=== PATIENT | male | born 2000 ===

== ENCOUNTER 2020-02-16 15:54 | Emergency (ER) | payer BC ==
--- NOTE | 2020-02-16 16:07 | EDM.PDOC ---
ED HPI GENERAL MEDICAL PROBLEM - General Stated Complaint: SWOLLEN KNEE Time Seen by Provider: 02/16/20 16:02 Source of Information: Reports: Patient History Limitations: Reports: No Limitations - History of Present Illness INITIAL COMMENTS - FREE TEXT/NARRATIVE: HISTORY AND PHYSICAL: History of present illness: Patient is a 19-year-old male who presents to the ED today with concern of right knee pain, swelling, redness since yesterday. Patient states he has noticed that his knee feels "tight "and hard to bend and rates his pain an 8 out of 10. Patient denies any direct trauma or injury to his knee but states he is on his knees working a lot. Patient states he does feel a little bit "warm "but has not checked his temperature at home. Patient denies any health history. Patient denies fever, chills, chest pain, shortness of breath, or cough. Denies headache, neck stiff ness, change in vision, syncope, or near syncope. Denies nausea, vomiting, abdominal pain, diarrhea, constipation, or dysuria. Has not noted any blood in urine or stool. Patient has been eating and drinking appropriately. Review of systems: As per history of present illness and below otherwise all systems reviewed and negative. Past medical history: As per history of present illness and as reviewed below otherwise noncontributory. Surgical history: As per history of present illness and as reviewed below otherwise noncontributory. Social history: See social history for further information Family history: As per history of present illness and as reviewed below otherwise noncontributory. Physical exam: General: Patient is alert, oriented, and in no acute distress. Patient laying comfortably on exam table. HEENT: Atraumatic, normocephalic, pupils equal and reactive bilaterally, negative for conjunctival pallor or scleral icterus, mucous membranes moist, TMs normal bilaterally, throat clear, neck supple, nontender, trachea midline. No drooling or trismus noted. No meningeal signs. No hot potato voice noted. Lungs: Clear to auscultation, breath sounds equal bilaterally, chest nontender. Heart: S1S2, regular rate and rhythm without overt murmur Abdomen: Soft, nondistended, nontender. Negative for masses or hepatosplenomegaly. Negative for costovertebral tenderness. Pelvis: Stable nontender. Genitourinary: Deferred. Rectal: Deferred. Skin: Intact, warm, dry. No lesions or rashes noted. Extremities: The right knee is moderately edematous and erythematous and warm to the touch. Range of motion of the right knee is limited due to pain. Dorsalis pedis and posterior tibial pulses of bilateral lower extremities grossly intact with capillary refill less than 2 seconds. Otherwise, atraumatic, negative for cords or calf pain. Neurovascular unremarkable. Neuro: Awake, alert, oriented. Cranial nerves II through XII unremarkable. Cerebellum unremarkable. Motor and sensory unremarkable throughout. Exam nonfocal. Notes: Dr. Nick directly involved in patient care and assisted in knee aspiration attempt. Synovial fluid analysis was unable to be obtained, see procedure note. Dr. Curran, [facility], consulted on patient and accepting of transfer. He request that we hold off on antibiotic treatment at this time as he desires to try to get synovial fluid when patient arrives to [place]. Patient declines EMS transfer and requests private vehicle Voices understanding and is agreeable to plan of care. Denies any further questions or concerns at this time. Diagnostics: CBC, CMP, ESR, CRP, lactate, blood culture x 2, synovial fluid analysis of right knee (crystal, culture, cell count, gram stain), right knee XR Therapeutics: NS, Morphine, Zofran Impression: Right knee pain r/o septic arthritis Plan: Transfer to [facility] to Dr. Curran via private vehicle Definitive disposition and diagnosis as appropriate pending reevaluation and review of above. Right Knee Pain Score (Numeric/FACES): 10 - Related Data Allergies Allergy/AdvReac Type Severity Reaction Status Date / Time No Known Allergies Allergy Verified 02/16/20 16:39 Home Meds: Home Meds . [No Known Home Meds] 02/16/20 [History] ED ROS GENERAL - Review of Systems Review Of Systems: Comprehensive ROS is negative, except as noted in HPI. ED EXAM, GENERAL - Physical Exam Exam: See Below (see dictation) ED GENERAL MEDICAL PROCEDURES - Additional/Other Procedure(s) Other (Free Text) Procedure(s): Arthrocentesis Consent obtained Performed by Annette Paiz and Dr. Nick Site of Procedure: Right Knee Prior to beginning of the procedure, the team paused to verify the patients identity, the procedure to be performed and the correct site and side were identified. This information was verified by the patient nurse, Salazar Hernandez and the patient himself. By physical exam, and effusion was located on the medial aspect of the right knee using landmarks the knee was positioned accordingly. The site was prepped using Betadine and sterilely draped. Using sterile technique and a 28-gauge needle the site was anesthetized with 5mls lidocaine 1%. The joint space was entered with an 18-gauge needle and synovial fluid was attempted to be aspirated on the medial aspect approach. Synovial fluid did not withdraw so patient was repositioned and set up to attempt the lateral side. Using a 28-gauge needle, the site was anesthetized with an additional 5 mL of 1% lidocaine. Joint space was entered with an 18-gauge needle and synovial fluid again was attempted to be aspirated on the lateral approach but was unable to aspirate any synovial fluid. A clean dressing was applied by nursing staff. I was present for the entire procedure as well as Dr. Nick. There were no immediate or anticipated complications. Course - Vital Signs Last Recorded V/S: Last Vital Signs Temp 100.3 F 02/16/20 18:54 Pulse 127 H 02/16/20 18:52 Resp 18 02/16/20 18:52 BP 150/70 H 02/16/20 18:52 Pulse Ox 97 02/16/20 18:52 - Orders/Labs/Meds Orders: Active Orders 24 hr Category Date Time Status CULTURE BLOOD [BC] Stat Lab 02/16/20 17:22 Received CULTURE BLOOD [BC] Stat Lab 02/16/20 17:27 Received Blood Culture x2 Reflex Set [OM.PC] Stat Oth 02/16/20 16:46 Ordered Labs: Laboratory Tests 02/16/20 02/16/20 02/16/20 Range/Units 17:22 17:22 17:22 WBC 15.31 H (4.0-11.0) K/uL RBC 4.71 (4.50-5.90) M/uL Hgb 14.5 (13.0-17.0) g/dL Hct 41.7 (38.0-50.0) % MCV 88.5 (80.0-98.0) fL MCH 30.8 (27.0-32.0) pg MCHC 34.8 (31.0-37.0) g/dL RDW Std Deviation 40.2 (28.0-62.0) fl RDW Coeff of Rocco 13 (11.0-15.0) % Plt Count 174 (150-400) K/uL MPV 11.00 (7.40-12.00) fL Neut % (Auto) 82.7 H (48.0-80.0) % Lymph % (Auto) 8.1 L (16.0-40.0) % [place] % (Auto) 8.4 (0.0-15.0) % Eos % (Auto) 0.7 (0.0-7.0) % Baso % (Auto) 0.1 (0.0-1.5) % Neut # (Auto) 12.7 H (1.4-5.7) K/uL Lymph # (Auto) 1.2 (0.6-2.4) K/uL [place] # (Auto) 1.3 H (0.0-0.8) K/uL Eos # (Auto) 0.1 (0.0-0.7) K/uL Baso # (Auto) 0.0 (0.0-0.1) K/uL Nucleated RBC % 0.0 /100WBC Nucleated RBCs # 0 K/uL ESR (0-14) mm/hr Lactate 1.0 (0.20-2.00) mmol/L Sodium 134 L (136-148) mmol/L Potassium 3.8 (3.5-5.1) mmol/L Chloride 99 (98-107) mmol/L Carbon Dioxide 23.2 (21.0-32.0) mmol/L BUN 15 (7.0-18.0) mg/dL Creatinine 1.3 (0.8-1.3) mg/dL Est Cr Clr Drug Dosing 98.66 mL/min Estimated GFR (MDRD) > 60.0 ml/min Glucose 88 (74-106) mg/dL Calcium 8.8 (8.5-10.1) mg/dL Total Bilirubin 0.8 (0.2-1.0) mg/dL AST 35 (15-37) IU/L ALT 46 (14-63) IU/L Alkaline Phosphatase 66 (46-116) U/L C-Reactive Protein 9.20 H (0.00-0.90) mg/dL Total Protein 8.4 H (6.4-8.2) g/dL Albumin 4.5 (3.4-5.0) g/dL Globulin 3.9 (2.6-4.0) g/dL Albumin/Globulin Ratio 1.2 (0.9-1.6) 02/16/20 Range/Units 17:27 WBC (4.0-11.0) K/uL RBC (4.50-5.90) M/uL Hgb (13.0-17.0) g/dL Hct (38.0-50.0) % MCV (80.0-98.0) fL MCH (27.0-32.0) pg MCHC (31.0-37.0) g/dL RDW Std Deviation (28.0-62.0) fl RDW Coeff of Rocco (11.0-15.0) % Plt Count (150-400) K/uL MPV (7.40-12.00) fL Neut % (Auto) (48.0-80.0) % Lymph % (Auto) (16.0-40.0) % [place] % (Auto) (0.0-15.0) % Eos % (Auto) (0.0-7.0) % Baso % (Auto) (0.0-1.5) % Neut # (Auto) (1.4-5.7) K/uL Lymph # (Auto) (0.6-2.4) K/uL [place] # (Auto) (0.0-0.8) K/uL Eos # (Auto) (0.0-0.7) K/uL Baso # (Auto) (0.0-0.1) K/uL Nucleated RBC % /100WBC Nucleated RBCs # K/uL ESR 1 (0-14) mm/hr Lactate (0.20-2.00) mmol/L Sodium (136-148) mmol/L Potassium (3.5-5.1) mmol/L Chloride (98-107) mmol/L Carbon Dioxide (21.0-32.0) mmol/L BUN (7.0-18.0) mg/dL Creatinine (0.8-1.3) mg/dL Est Cr Clr Drug Dosing mL/min Estimated GFR (MDRD) ml/min Glucose (74-106) mg/dL Calcium (8.5-10.1) mg/dL Total Bilirubin (0.2-1.0) mg/dL AST (15-37) IU/L ALT (14-63) IU/L Alkaline Phosphatase (46-116) U/L C-Reactive Protein (0.00-0.90) mg/dL Total Protein (6.4-8.2) g/dL Albumin (3.4-5.0) g/dL Globulin (2.6-4.0) g/dL Albumin/Globulin Ratio (0.9-1.6) Meds: Medications Discontinued Medications Generic Name Dose Route Start Last Admin Trade Name Freq PRN Reason Stop Dose Admin Sodium Chloride 1,000 mls @ 999 mls/hr 02/16/20 17:01 02/16/20 17:29 Normal Saline IV 02/16/20 18:01 999 mls/hr STAT ONE Administration Ketorolac Tromethamine 30 mg 02/16/20 18:34 02/16/20 18:51 Toradol IVPUSH 02/16/20 18:35 30 mg ONETIME ONE Administration Lidocaine HCl 5 ml 02/16/20 16:49 02/16/20 17:28 Xylocaine-Mpf 1% INJECT 02/16/20 16:50 5 ml ONETIME ONE Administration Lidocaine HCl Confirm 02/16/20 17:39 02/16/20 18:52 Xylocaine-Mpf 1% Administered 02/16/20 17:40 Not Given Dose 5 ml .ROUTE .STK-MED ONE Morphine Sulfate 4 mg 02/16/20 17:21 02/16/20 17:29 Morphine IVPUSH 02/16/20 17:22 4 mg ONETIME ONE Administration Morphine Sulfate 2 mg 02/16/20 18:35 Morphine IVPUSH 02/16/20 18:36 ONETIME ONE Ondansetron HCl 4 mg 02/16/20 17:21 02/16/20 17:29 Zofran IVPUSH 02/16/20 17:22 4 mg ONETIME ONE Administration Departure - Departure Time of Disposition: 18:31 Disposition: DC/[facility]fer to [facility] 02 Clinical Impression: Knee pain Qualifiers: Chronicity: acute Laterality: right Qualified Code(s): M25.561 - Pain in right knee - Discharge Information Referrals: PCP,None [Primary Care Provider] - Forms: ED Department Discharge Sepsis Event Note (ED) - Focused Exam Vital Signs: Vital Signs Temp Temp Pulse Resp BP Pulse Ox 02/16/20 18:54 100.3 F 02/16/20 18:52 127 H 18 150/70 H 97 02/16/20 18:15 78 131/87 97 02/16/20 16:36 100.2 F 112 H 16 158/78 H 97 - My Orders Last 24 Hours: My Active Orders 02/16/20 16:46 Blood Culture x2 Reflex Set [OM.PC] Stat 02/16/20 17:22 CULTURE BLOOD [BC] Stat 02/16/20 17:27 CULTURE BLOOD [BC] Stat - Assessment/Plan Last 24 Hours: My Active Orders 02/16/20 16:46 Blood Culture x2 Reflex Set [OM.PC] Stat 02/16/20 17:22 CULTURE BLOOD [BC] Stat 02/16/20 17:27 CULTURE BLOOD [BC] Stat
[2020-02-16] MEDS ORDERED: Sodium Chloride 0.9% 1,000 ML IV ONE (17:01)
[2020-02-16] MEDS ORDERED: Ondansetron 4 MG/2 ML SDV IVPUSH ONE (17:21)
[2020-02-16] MEDS ORDERED: Morphine 4 MG/ML Syringe IVPUSH ONE (17:21)
--- NOTE | 2020-02-16 17:45 | CR ---
Right knee: 3 views of the right knee were obtained. Comparison: No previous knee study. Medial and lateral joint compartments maintained height. Small detached bony density is noted of the anterior tibial tuberosity which appears to be chronic. No joint effusion is seen. Patellofemoral joint appears within normal limits. Impression: 1. Finding believed to be incidental as noted above. 2. Right knee study is otherwise unremarkable. Diagnostic code #2 This report was dictated in MDT
[2020-02-16 18:01] LABS: BLOOD UREA NITROGEN,BUN 15 mg/dL (7.0-18.0); CARBON DIOXIDE,CO2 23.2 mmol/L (21.0-32.0); CHLORIDE,CL 99 mmol/L (98-107); GLUCOSE RANDOM 88 mg/dL (74-106); POTASSIUM,K 3.8 mmol/L (3.5-5.1); SODIUM,NA 134 mmol/L (136-148)
[2020-02-16] MEDS ORDERED: Ketorolac 30 MG/ML SDV IVPUSH ONE (18:34)
[2020-02-16] MEDS ORDERED: Morphine 2 MG/ML SYRINGE IVPUSH ONE (18:35)
== END 2020-02-16 19:04 ==
LOC: EDBD 15:54 → MW.ED 15:54
DX: M25.561 Pain in right knee (principal)
CPT/HCPCS: 36415; 73562; 80053; 83605; 85025; 85652; 86140; 87040; 96374; 96375; 99284; J1885; J2001; J2270; J2405; J7030; 20610